=== PATIENT | male | born 2000 | race Caucasian/White ===

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

== ENCOUNTER 2023-01-19 20:45 | Emergency (ER) | payer MEDICAID ==
[~2023-01-19] VITALS: Ht 183.5 cm; Wt 104.0 kg
[~2023-01-19 20:45] MED LIST changes: +ALBU6.7H14 INH
[2023-01-19 20:58] VITALS: BP 152/92; PULSE 65; TEMP 97.8; O2SAT 100
[2023-01-19 21:15] VITALS: RESP 16
--- NOTE | 2023-01-19 21:25 | NUR ---
I AGREE WITH INJECTION WAX MOLDER ASSESSMENT.
== END 2023-01-19 22:52 | disposition home or self-care (01) ==
LOC: ER 20:46
DX: H11.32 Conjunctival hemorrhage, left eye (principal); Z91.040 Latex allergy status
CPT/HCPCS: 99281